=== PATIENT | male | born 1985 | race Caucasian/White ===

== ENCOUNTER 2018-05-16 14:40 | Emergency (ER) | payer MEDICAID ==
[~2018-05-16] VITALS: Ht 175.3 cm; Wt 88.5 kg
[2018-05-16 14:51] VITALS: BP 126/81
[2018-05-16] MEDS ORDERED: BUPROPION XL300 MG ORAL (14:52)
--- NOTE | 2018-05-16 15:03 | Emergency Room Report ---
History of Present Illness General Chief Complaint: Earache Source: Patient Present Illness HPI 33-year-old male presents to the emergency department complaining of 8 out of 10 in severity progressive pain to the right ear 2 weeks. Patient denies changes in his hearing or discharge from the ear. Patient does report that he uses Q-tips regularly. Patient denies trauma to the ear or eardrum. Patient reports he did similar to his head in water recently. Patient denies fevers, chills, nasal congestion, sore throat or other URI symptoms. Patient denies headache or imbalance. Allergies: Coded Allergies: AMOXICILLIN (Verified Allergy, Unknown, 05/16/18) Patient History Past Medical History: see triage record Past Surgical History: none Pertinent Family History: none Reviewed Nursing Documentation: PMH: Agreed; PSxH: Agreed Nursing Documentation-PMH Past Medical History: No History, Except For History Of Psychiatric Problem: No - bipolar Review of Systems All Other Systems: negative except mentioned in HPI Physical Exam Vital Signs Date Time Temp Pulse Resp B/P (MAP) Pulse Ox O2 Delivery O2 Flow Rate FiO2 05/16/18 14:51 98.8 81 18 126/81 98 Room Air Sp02 EP Interpretation: reviewed, normal General Appearance: no apparent distress, alert, GCS 15, non-toxic Head: normocephalic, atraumatic Eyes: bilateral eye normal inspection, bilateral eye PERRL ENT: hearing grossly normal, normal pharynx, normal voice, nasal congestion, other - Right ear canal is macerated, some external ear tenderness to palpation , creamy white d/c noted in the right ear canal. the TM is WNL. Neck: full range of motion Respiratory: lungs clear, normal breath sounds, speaking full sentences Cardiovascular #1: regular rate, rhythm, no edema Musculoskeletal: back normal, gait/station normal, normal range of motion, non- tender Neurologic: alert, oriented x3, responsive, motor strength/tone normal, sensory intact, normal gait, speech normal, grossly normal Psychiatric: judgement/insight normal Skin: normal color, no rash, warm/dry, well hydrated Lymphatic: no adenopathy Medical Decision Making PA Attestation Dr. Talbot is my supervising Physician whom patient management has been discussed with. Diagnostic Impression: Primary Impression: Otitis externa Qualified Codes: H60.501 - Unspecified acute noninfective otitis externa, right ear ER Course 33-year-old male presents to the emergency department complaining of 8 out of 10 in severity progressive pain to the right ear 2 weeks. Patient denies changes in his hearing or discharge from the ear. Patient does report that he uses Q-tips regularly. Patient denies trauma to the ear or eardrum. Patient reports he did similar to his head in water recently. Patient denies fevers, chills, nasal congestion, sore throat or other URI symptoms. Patient denies headache or imbalance. Ddx considered but are not limited to OM, OE, mastoiditis, TM perforation, FB, shingles just to name a few. Vital signs: are WNL, pt. is afebrile H&PE are most consistent with otitis Externa ORDERS: none required at this time, the diagnosis is clinical -OTOSCOPY: Right ear canal is macerated, some external ear tenderness to palpation, creamy white d/c noted in the right ear canal. the TM is WNL. ED INTERVENTIONS: None required at this time. DISCHARGE: At this time pt. is stable for d/c to home. With PO ABX. Will provide printed patient care instructions, and any necessary prescriptions. Care plan and follow up instructions have been discussed with the patient prior to discharge. Last Vital Signs Date Time Temp Pulse Resp B/P (MAP) Pulse Ox O2 Delivery O2 Flow Rate FiO2 05/16/18 14:51 98.8 81 18 126/81 98 Room Air Disposition: HOME, SELF-CARE Condition: Stable Scripts Acetaminophen* (TYLENOL EXTRA STRENGTH*) 500 Mg Tablet 500 MG ORAL Q6H, #20 TAB 0 Refills Prov: Paz Hernandez 05/16/18 Ciprofloxacin Hcl/Dexameth (CIPRODEX OTIC SUSPENSION) 7.5 Ml Drops.susp 4 DROP RIGHT EAR TWICE A DAY, #7.5 ML Prov: Paz Hernandez 05/16/18 Patient Instructions: Otitis Externa, [id number] Additional Instructions: Take medications as directed. Follow up with a Primary Care Provider in 3-5 days, even if your symptoms have resolved. --Please review list of primary care clinics, if you do not already have a primary care provider Return sooner to ED if new symptoms occur, or current symptoms become worse. - Please note that this Emergency Department Report was dictated using [employer] helper technology software, occasionally this can lead to erroneous entry secondary to interpretation by the dictation equipment. Paz Hernandez May 16, 2018 15:03
[2018-05-16] MEDS ORDERED: CIPRODEX OTIC7.5 M1 RIGHT EAR (15:05)
[2018-05-16] MEDS ORDERED: TYLENOL EXTRA500 MG ORAL (15:05)
[2018-05-16 15:15] VITALS: BP 126/81
== END 2018-05-16 15:15 | disposition home or self-care (01) ==
LOC: EMR 14:58
DX: H60.91 Unspecified otitis externa, right ear (principal); Z88.0 Allergy status to penicillin; F31.9 Bipolar disorder, unspecified
CPT/HCPCS: 99283

== ENCOUNTER 2018-06-29 11:49 | Emergency (ER) | payer MEDICAID ==
[~2018-06-29] VITALS: Ht 175.3 cm; Wt 83.9 kg
[~2018-06-29 11:49] MED LIST: BUPROPION XL300 MG ORAL; CIPRODEX OTIC7.5 M1 RIGHT EAR; TYLENOL EXTRA500 MG ORAL
[2018-06-29 12:26] VITALS: BP 125/79
--- NOTE | 2018-06-29 12:28 | NUR ---
ED Nurse Note:pt. c/o right earache no discharge
[2018-06-29] MEDS ORDERED: CORTISPORIN EAR10 ML RIGHT EAR (12:36)
--- NOTE | 2018-06-29 12:36 | Emergency Room Report ---
History of Present Illness General Chief Complaint: Earache Source: Patient Present Illness HPI 33-year-old male presents to the emergency department complaining of 7 out of 10 in severity right ear discomfort 2 weeks. Patient reports that he previously had infection in this ear was applying antibiotic drops with no relief. Patient also reports increased nasal congestion and muffled hearing out of the ear. Patient denies fevers, chills, ill contacts with similar symptoms or recent upper respiratory infections. Denies any additional aggravating or relieving factors. Allergies: Coded Allergies: AMOXICILLIN (Verified Allergy, Unknown, 05/16/18) Patient History Past Medical History: see triage record Past Surgical History: none Pertinent Family History: none Immunizations: UTD Reviewed Nursing Documentation: PMH: Agreed; PSxH: Agreed Nursing Documentation-PMH Past Medical History: No Stated History Review of Systems All Other Systems: negative except mentioned in HPI Physical Exam Vital Signs Date Time Temp Pulse Resp B/P (MAP) Pulse Ox O2 Delivery O2 Flow Rate FiO2 06/29/18 11:52 98.2 80 18 125/79 95 Room Air Sp02 EP Interpretation: reviewed, normal General Appearance: no apparent distress, alert, GCS 15, non-toxic Head: normocephalic, atraumatic Eyes: bilateral eye normal inspection, bilateral eye PERRL ENT: hearing grossly normal, normal pharynx, normal voice, uvula midline, nasal congestion, other - -OTOSCOPY: Right ear Canal is erythematous and macerated in appearance with thick white d/c noted, no TM involvement, no evidence of mastoidits or preauricular LAD on PE. Neck: full range of motion, no meningismus Respiratory: chest non-tender, lungs clear, normal breath sounds, speaking full sentences Cardiovascular #1: regular rate, rhythm Musculoskeletal: back normal, gait/station normal, normal range of motion, non- tender Neurologic: alert, oriented x3, responsive, motor strength/tone normal, sensory intact, speech normal, grossly normal Psychiatric: judgement/insight normal Skin: normal color, no rash, warm/dry, well hydrated Lymphatic: no adenopathy Medical Decision Making PA Attestation Dr. Sandoval is my supervising physician whom pt. management has been discussed with. Diagnostic Impression: Primary Impression: Otitis externa Qualified Codes: H60.501 - Unspecified acute noninfective otitis externa, right ear ER Course 33-year-old male presents to the emergency department complaining of 7 out of 10 in severity right ear discomfort 2 weeks. Patient reports that he previously had infection in this ear was applying antibiotic drops with no relief. Patient also reports increased nasal congestion and muffled hearing out of the ear. Patient denies fevers, chills, ill contacts with similar symptoms or recent upper respiratory infections. Denies any additional aggravating or relieving factors. Ddx considered but are not limited to OM, OE, mastoiditis, TM perforation, FB Vital signs: are WNL, pt. is afebrile H&PE are most consistent with otitis externa ORDERS: none required at this time, the diagnosis is clinical -OTOSCOPY: Right ear Canal is erythematous and macerated in appearance with thick white d/c noted, no TM involvement, no evidence of mastoidits or preauricular LAD on PE. ED INTERVENTIONS: None required at this time. DISCHARGE: At this time pt. is stable for d/c to home. With Otic ABX. Will provide printed patient care instructions, and any necessary prescriptions. Care plan and follow up instructions have been discussed with the patient prior to discharge. Last Vital Signs Date Time Temp Pulse Resp B/P (MAP) Pulse Ox O2 Delivery O2 Flow Rate FiO2 06/29/18 12:26 98.2 70 18 125/79 95 Room Air Disposition: HOME, SELF-CARE Condition: Stable Scripts Neomycin/Polymyxin B Sulf/Hc* (CORTISPORIN EAR SOLUTION*) 10 Ml Solution 4 DROP RIGHT EAR QID for 7 Days, #10 ML 0 Refills Prov: Paz Hernandez 06/29/18 Referrals: NOT CHOSEN IPA/MD,REFERRING (PCP) Patient Instructions: Otitis Externa, [id number] Additional Instructions: Take medications as directed. Follow up with a Primary Care Provider in 3-5 days, even if your symptoms have resolved. --Please review list of primary care clinics, if you do not already have a primary care provider Return sooner to ED if new symptoms occur, or current symptoms become worse. - Please note that this Emergency Department Report was dictated using [employer] wad operator adjuster technology software, occasionally this can lead to erroneous entry secondary to interpretation by the dictation equipment. Paz Hernandez Jun 29, 2018 12:35
[2018-06-29 12:45] VITALS: BP 125/79
--- NOTE | 2018-06-29 12:47 | NUR ---
ED Nurse Note: Patient is being discharged cleared by ER provider. discharge instruction with prescription given to the patient, patient verbalized understanding. patient a/o x4, ambulated out of Ed with steady gait, with all belongings. ID band removed.
== END 2018-06-29 12:47 | disposition home or self-care (01) ==
LOC: EMR 12:25
DX: H60.91 Unspecified otitis externa, right ear (principal); Z88.0 Allergy status to penicillin
CPT/HCPCS: 99282

== ENCOUNTER 2019-01-13 19:24 | Inpatient (IN) | payer MEDICAID ==
[~2019-01-13] VITALS: Ht 167.6 cm; Wt 75.3 kg
[~2019-01-13 19:24] MED LIST changes: +CORTISPORIN EAR10 ML RIGHT EAR
[2019-01-13 19:39] VITALS: BP 119/76
--- NOTE | 2019-01-13 19:43 | NUR ---
ED Nurse Note: Patient walked in to ER from home c/o azbdominal pain, N/V/D. Stated that was taking Ticicay 50 mg, and Truvada in order to prevent HIV. Per patient he had unprotected sex with woman who in high risk to have HIV. AAO x4, VSS at this time, skin is dry warm to touch.
[2019-01-13 20:19] LABS: ANION GAP 8 mmol/L (5-15); BLOOD UREA NITROGEN 14 mg/dL (7-18); CALCIUM 9.7 MG/DL (8.5-10.1); CARBON DIOXIDE 32 MMOL/L (21-32); CHLORIDE 97 MMOL/L (98-107); CREATININE 1.2 MG/DL (0.55-1.30); POTASSIUM 3.2 MMOL/L (3.5-5.1); SODIUM 137 MMOL/L (136-145)
[2019-01-13 20:28] LABS: BASOPHILS % (AUTO) 1.5 % (0.0-2.0); EOSINOPHILS % (AUTO) 2.9 % (0.0-3.0); HEMATOCRIT 45.1 % (42.0-52.0); HEMOGLOBIN 16.7 G/DL (14.2-18.0); LYMPHOCYTES % (AUTO) 22.2 % (20.0-45.0); MEAN CORPUSCULAR VOLUME 88 FL (80-99); MONOCYTES % (AUTO) 11.6 % (1.0-10.0); NEUTROPHILS % (AUTO) 61.9 % (45.0-75.0); PLATELET COUNT 197 K/UL (150-450); RED BLOOD COUNT 5.12 M/UL (4.70-6.10); RED CELL DISTRIBUTION WIDTH 10.6 % (11.6-14.8); WHITE BLOOD COUNT 7.4 K/UL (4.8-10.8)
[2019-01-13 20:29] LABS: ALANINE AMINOTRANSFERASE 29 U/L (12-78); ALBUMIN 4.3 G/DL (3.4-5.0); ALBUMIN/GLOBULIN RATIO 1.3 (1.0-2.7); ALKALINE PHOSPHATASE 76 U/L (46-116); ASPARTATE AMINO TRANSFERASE 34 U/L (15-37); BILIRUBIN,TOTAL 1.3 MG/DL (0.2-1.0)
[2019-01-13 20:32] LABS: BILIRUBIN,DIRECT 0.2 MG/DL (0.0-0.3)
--- NOTE | 2019-01-13 20:47 | Diagnostic Imaging Report ---
EXAM: XR Chest, 1 View CLINICAL HISTORY: SOB TECHNIQUE: Frontal view of the chest. COMPARISON: No relevant prior studies available. FINDINGS: Lungs: Unremarkable. No consolidation. Pleural space: Unremarkable. No pneumothorax. Heart: Unremarkable. No cardiomegaly. Mediastinum: Unremarkable. Bones/joints: Unremarkable. IMPRESSION: 1. No acute cardio pulmonary disease. 2. If there is continued concern, recommend PA and lateral chest radiographs.
[2019-01-13] MEDS ORDERED: Ketorolac 30mg Inj IV ONE (21:15)
[2019-01-13] MEDS ORDERED: Loperamide 2mg cap ORAL ONE (21:15)
[2019-01-13] MEDS ORDERED: Isovue-300 100ml vial INJ PRN (21:15)
[2019-01-13 21:35] LABS: APPEARANCE,URINE CLEAR; BILIRUBIN, URINE 1+ (NEGATIVE); COLOR,URINE BROWN; GLUCOSE, URINE (UA) NEGATIVE (NEGATIVE); KETONES,URINE 1+ (NEGATIVE); LEUKOCYTE ESTERASE ,URINE 1+ (NEGATIVE); NITRITE,URINE NEGATIVE (NEGATIVE); PH,URINE 6 (4.5-8.0); PROTEIN,URINE 2+ (NEGATIVE); UROBILINOGEN,URINE 4 MG/DL (0.0-1.0)
--- NOTE | 2019-01-13 21:46 | Emergency Room Report ---
History of Present Illness General Chief Complaint: Dyspnea/Respdistress Source: Patient (Rishi Kirby MD) Present Illness HPI 33-year-old male presents ED for evaluation. Complaining of back pain, diarrhea , weakness, shortness of breath for the last few days. Pain is dull, 7 out of 10, localized to lower back. States he has been having multiple episodes of watery loose stools for the last few days. States that he is currently taking PreP therapy Truvada and Tivicay. Has been taking this on and off for the last few months because his partner has uncertain STD history. Declines denies being HIV positive and has been tested multiple times in the past for this. Denies any recent travel or recent antibiotic use. Denies fevers or chills. Denies chest pain. No other aggravating relieving factors. Denies any other associated symptoms (Rishi Kirby MD) Allergies: Coded Allergies: AMOXICILLIN (Verified Allergy, Unknown, 05/16/18) Patient History Past Medical History: none Past Surgical History: none Pertinent Family History: none Social History: Denies: smoking, alcohol use, drug use Immunizations: UTD Reviewed Nursing Documentation: PMH: Agreed; PSxH: Agreed (Rishi Kirby MD) Nursing Documentation-PMH Hx Cardiac Problems: Yes Hx Neurological Problems: Yes - HIV (Rishi Kirby MD) Review of Systems All Other Systems: negative except mentioned in HPI (Rishi Kirby MD) Physical Exam Vital Signs Date Time Temp Pulse Resp B/P (MAP) Pulse Ox O2 Delivery O2 Flow Rate FiO2 01/13/19 19:27 Room Air 01/13/19 19:39 98.6 82 22 119/76 100 Sp02 EP Interpretation: reviewed, normal General Appearance: no apparent distress, alert, GCS 15, non-toxic Head: normocephalic, atraumatic Eyes: bilateral eye normal inspection, bilateral eye PERRL ENT: hearing grossly normal, normal pharynx, no angioedema, normal voice Neck: full range of motion, supple/symm/no masses Respiratory: chest non-tender, lungs clear, normal breath sounds, speaking full sentences Cardiovascular #1: regular rate, rhythm, no edema Cardiovascular #2: 2+ carotid (R), 2+ carotid (L), 2+ radial (R), 2+ radial (L) , 2+ dorsalis pedis (R), 2+ dorsalis pedis (L) Gastrointestinal: normal bowel sounds, soft, non-distended, no guarding, no rebound, tenderness Rectal: deferred Genitourinary: normal inspection, CVA tenderness (R), CVA tenderness (L) Musculoskeletal: back normal, gait/station normal, normal range of motion, non- tender Neurologic: alert, oriented x3, responsive, motor strength/tone normal, sensory intact, speech normal Psychiatric: judgement/insight normal, memory normal, mood/affect normal, no suicidal/homicidal ideation Reflexes: 3+ bicep (R), 3+ bicep (L), 3+ tricep (R), 3+ tricep (L), 3+ knee (R) , 3+ knee (L) Lymphatic: no adenopathy (Rishi Kirby MD) Medical Decision Making Diagnostic Impression: Primary Impression: Colitis Additional Impression: Hypokalemia Labs Test 01/13/19 19:30 01/13/19 20:55 White Blood Count 7.4 K/UL (4.8-10.8) Red Blood Count 5.12 M/UL (4.70-6.10) Hemoglobin 16.7 G/DL (14.2-18.0) Hematocrit 45.1 % (42.0-52.0) Mean Corpuscular Volume 88 FL (80-99) Mean Corpuscular Hemoglobin 32.7 PG (27.0-31.0) Mean Corpuscular Hemoglobin Concent 37.1 G/DL (32.0-36.0) Red Cell Distribution Width 10.6 % (11.6-14.8) Platelet Count 197 K/UL (150-450) Mean Platelet Volume 9.8 FL (6.5-10.1) Neutrophils (%) (Auto) 61.9 % (45.0-75.0) Lymphocytes (%) (Auto) 22.2 % (20.0-45.0) Monocytes (%) (Auto) 11.6 % (1.0-10.0) Eosinophils (%) (Auto) 2.9 % (0.0-3.0) Basophils (%) (Auto) 1.5 % (0.0-2.0) Sodium Level 137 MMOL/L (136-145) Potassium Level 3.2 MMOL/L (3.5-5.1) Chloride Level 97 MMOL/L (98-107) Carbon Dioxide Level 32 MMOL/L (21-32) Anion Gap 8 mmol/L (5-15) Blood Urea Nitrogen 14 mg/dL (7-18) Creatinine 1.2 MG/DL (0.55-1.30) Estimat Glomerular Filtration Rate > 60 mL/min (>60) Glucose Level 67 MG/DL (74-106) Calcium Level 9.7 MG/DL (8.5-10.1) Total Bilirubin 1.3 MG/DL (0.2-1.0) Direct Bilirubin 0.2 MG/DL (0.0-0.3) Aspartate Amino Transf (AST/SGOT) 34 U/L (15-37) Alanine Aminotransferase (ALT/SGPT) 29 U/L (12-78) Alkaline Phosphatase 76 U/L (46-116) Troponin I 0.000 ng/mL (0.000-0.056) Total Protein 7.6 G/DL (6.4-8.2) Albumin 4.3 G/DL (3.4-5.0) Globulin 3.3 g/dL Albumin/Globulin Ratio 1.3 (1.0-2.7) Lipase 140 U/L (73-393) Urine Color Brown Urine Appearance Clear Urine pH 6 (4.5-8.0) Urine Specific [place] 1.020 (1.005-1.035) Urine Protein 2+ (NEGATIVE) Urine Glucose (UA) Negative (NEGATIVE) Urine Ketones 1+ (NEGATIVE) Urine Blood Negative (NEGATIVE) Urine Nitrite Negative (NEGATIVE) Urine Bilirubin 1+ (NEGATIVE) Urine Ictotest Negative (NEGATIVE) Urine Urobilinogen 4 MG/DL (0.0-1.0) Urine Leukocyte Esterase 1+ (NEGATIVE) (Rishi Kirby MD) ER Course CT as below. Contact Dr. Mccormick for admission. (Clem Chapa MD) EKG Diagnostic Results Rate: normal Rhythm: NSR ST Segments: no acute changes ASA given to the pt in ED: No (Rishi Kirby MD) Rhythm Strip Diag. Results EP Interpretation: yes Rhythm: NSR, no PVC's, no ectopy (Rishi Kirby MD) Chest X-Ray Diagnostic Results Chest X-Ray Diagnostic Results : Chest X-Ray Ordered: Yes # of Views/Limited/Complete: 1 View Indication: Shortness of Breath EP Interpretation: Yes Interpretation: no consolidation, no effusion, no pneumothorax, no acute cardiopulmonary disease Impression: No acute disease Electronically Signed by: Electronically signed by Rishi Kirby MD (Rishi Kirby MD) CT/MRI/US Diagnostic Results CT/MRI/US Diagnostic Results : Imaging Test Ordered: abd/pelvis Impression 1. Normal appendix. 2. Diffuse liquid colonic contents with mild rectal wall thickening could represent an infectious or inflammatory colitis, correlate clinically. 3. Substantially dilated of uncertain etiology large volume of ingested contents, correlate clinically and consider NG tube decompression. (Clem Chapa MD) Last Vital Signs Date Time Temp Pulse Resp B/P (MAP) Pulse Ox O2 Delivery O2 Flow Rate FiO2 01/13/19 19:39 82 22 Room Air 01/13/19 19:39 98.6 119/76 100 Status: improved (Rishi Kirby MD) Last Vital Signs Date Time Temp Pulse Resp B/P (MAP) Pulse Ox O2 Delivery O2 Flow Rate FiO2 01/14/19 04:00 98.0 68 18 114/68 (83) 96 01/13/19 23:44 Room Air (Clem Chapa MD) Disposition: ADMITTED INPATIENT Condition: Serious Referrals: Hansa SWIFT,REFERRING (PCP) Rishi Kirby MD Jan 13, 2019 21:46 Clem Chapa MD Jan 13, 2019 22:33
--- NOTE | 2019-01-13 22:26 | Diagnostic Imaging Report ---
EXAM: CT Abdomen and Pelvis With Intravenous Contrast CLINICAL HISTORY: FLANK TECHNIQUE: Axial computed tomography images of the abdomen and pelvis with intravenous contrast. CTDI is 14 mGy and DLP is 765 mGy-cm. One or more of the following dose reduction techniques were used: automated exposure control, adjustment of the mA and/or kV according to patient size, use of iterative reconstruction technique. Coronal and sagittal reformatted images were created and reviewed. COMPARISON: No relevant prior studies available. FINDINGS: Lung bases: Unremarkable. No mass. No consolidation. ABDOMEN: Liver: Unremarkable. No mass. Gallbladder and bile ducts: Unremarkable. No calcified stones. No ductal dilation. Pancreas: Unremarkable. No mass. No ductal dilation. Spleen: Unremarkable. No splenomegaly. Adrenals: Unremarkable. No mass. Kidneys and ureters: Unremarkable. No solid mass. No hydronephrosis. Stomach and bowel: Diffuse liquid colonic contents with mild rectal wall thickening could represent an infectious or inflammatory colitis, correlate clinically. Substantially dilated of uncertain etiology large volume of ingested contents, correlate clinically and consider NG tube decompression. PELVIS: Appendix: No findings to suggest acute appendicitis. Bladder: Unremarkable. No mass. Reproductive: Unremarkable as visualized. ABDOMEN and PELVIS: Intraperitoneal space: Unremarkable. No free air. No significant fluid collection. Bones/joints: No acute fracture. No dislocation. Soft tissues: Unremarkable. Vasculature: Unremarkable. No abdominal aortic aneurysm. Lymph nodes: Scattered mildly prominent mesenteric lymph nodes could be reactive. IMPRESSION: 1. Normal appendix. 2. Diffuse liquid colonic contents with mild rectal wall thickening could represent an infectious or inflammatory colitis, correlate clinically. 3. Substantially dilated of uncertain etiology large volume of ingested contents, correlate clinically and consider NG tube decompression.
[2019-01-13 22:53] VITALS: BP 125/76
--- NOTE | 2019-01-13 22:53 | NUR ---
ED Nurse Note: Patient was admited to the MS due to severe diarrhea, colitis. Patient was transfered to the unit via gurney, with all belongings. AAO x4, VSS at this time, skin is dry warm to touch.
--- NOTE | 2019-01-13 23:00 | NUR ---
NURSE NOTES: Admitted patient awake,alert,verbal,ambulatory with essentially normal vital signs.
[2019-01-13] MEDS ORDERED: Zolpidem 5mg tab ORAL PRN (23:30)
[2019-01-13] MEDS ORDERED: Loperamide 2mg cap ORAL PRN (23:30)
[2019-01-13] MEDS ORDERED: Morphine Sulfate 4mg/ml Inj (IV USE ONLY) IVP PRN ×2 (23:30)
[2019-01-14] VITALS: BP 113/72
[2019-01-14] MEDS: metroNIDAZOLE 500mg tab ORAL SCH ×3 (00:18→14:30)
[2019-01-14] MEDS: D5 1/2NS 1,000 ML IV SCH ×2 (00:19→12:15)
--- NOTE | 2019-01-14 00:47 | NUR ---
NURSE NOTES: Pharmacy adoption coordinator Patricia called regarding patient's allergy to amoxicillin,and hold in the meantime the Zosyn until discussed/informed the attending MD early in the morning.
[2019-01-14] MEDS ORDERED: Zoysn 3.37gm in NS 100ML IVPB SCH ×5 (01:00→01:30)
[2019-01-14 04:00] VITALS: BP 114/68
[2019-01-14 06:27] LABS: BASOPHILS % (AUTO) 0.9 % (0.0-2.0); EOSINOPHILS % (AUTO) 5.8 % (0.0-3.0); HEMATOCRIT 39.7 % (42.0-52.0); HEMOGLOBIN 14.1 G/DL (14.2-18.0); MEAN CORPUSCULAR VOLUME 93 FL (80-99); MONOCYTES % (AUTO) 14.7 % (1.0-10.0); NEUTROPHILS % (AUTO) 55.6 % (45.0-75.0); PLATELET COUNT 144 K/UL (150-450); RED BLOOD COUNT 4.29 M/UL (4.70-6.10); RED CELL DISTRIBUTION WIDTH 11.1 % (11.6-14.8); WHITE BLOOD COUNT 7.2 K/UL (4.8-10.8)
[2019-01-14 06:49] LABS: ALANINE AMINOTRANSFERASE 21 U/L (12-78); ALBUMIN 3.1 G/DL (3.4-5.0); ALBUMIN/GLOBULIN RATIO 1.2 (1.0-2.7); ALKALINE PHOSPHATASE 51 U/L (46-116); ANION GAP 7 mmol/L (5-15); ASPARTATE AMINO TRANSFERASE 23 U/L (15-37); BILIRUBIN,TOTAL 0.8 MG/DL (0.2-1.0); BLOOD UREA NITROGEN 13 mg/dL (7-18); CALCIUM 8.5 MG/DL (8.5-10.1); CARBON DIOXIDE 27 MMOL/L (21-32); CHLORIDE 105 MMOL/L (98-107); POTASSIUM 3.3 MMOL/L (3.5-5.1); SODIUM 139 MMOL/L (136-145)
--- NOTE | 2019-01-14 07:26 | NUR ---
HAND-OFF: Report given to Jacqueline Campbell RN.
--- NOTE | 2019-01-14 07:30 | NUR ---
NURSE NOTES: Patient is in bed asleep. Stable. No signs of distress noted at this time. Breathing is even and unlabored. Patient in bed in locked and lowest position with call light within reach. Will continue to monitor.
[2019-01-14] MEDS ORDERED: cefTRIAXone 1 GM in D5W 55 ML IVPB SCH (09:00)
[2019-01-14 12:00] VITALS: BP 107/70
--- NOTE | 2019-01-14 13:36 | History & Physical ---
History and Physical History & Physicial HP dictated Star Mccormick MD Jan 14, 2019 13:36
[2019-01-14] MEDS ORDERED: D5 1/2NS 1000ml IV ONE (15:11)
[2019-01-14] MEDS ORDERED: Tubing IV Secondary IV ONE (15:11)
[2019-01-14 16:00] VITALS: BP 107/72
--- NOTE | 2019-01-14 17:36 | NUR ---
NURSE NOTES: Patient discharged home as ordered. Stable. Denies pain or SOB. Patient AOx4 and able to drive himself home. Thorough discharge instructions given to patient, patient verbalized understanding. Patient has contact information for Dr. Ambika Mccormick. Patient has all belongings. Skin is clean, dry, and intact. no IV access. Patient assisted outside by RN without incident.
--- NOTE | 2019-01-14 18:15 | Consultation ---
DATE OF CONSULTATION: 01/14/2019 INFECTIOUS DISEASE CONSULT CONSULTING PHYSICIAN: Abdiel Mccormick M.D. REASON FOR CONSULT: Gastroenteritis. HISTORY OF PRESENT ILLNESS: This is a 33-year-old white male admitted yesterday from home complaining of low back pain 7/10, watery diarrhea for few days. Had 2 episodes of vomiting. Got some antibiotic in the ER and now feels better. PAST MEDICAL HISTORY: History of amphetamine abuse. ALLERGIES: Allergic to amoxicillin. MEDICATIONS: Ceftriaxone, Flagyl, Ambien, Zofran, Imodium, morphine sulfate. SOCIAL HISTORY: He is single, lives in a sober home. He has occasional smoking. Getting exposure prophylaxis for HIV. No sick contacts. Had a recent travel to [place]. REVIEW OF SYSTEMS: Today feeling better. Has no fever. No chills. No coughing. No shortness of breath. Has some back pain, but less than before. Diarrhea is resolved. No problem passing urine. PHYSICAL EXAMINATION: VITAL SIGNS: Temperature 98.3, pulse 71, blood pressure 107/70. GENERAL APPEARANCE: No acute distress, well developed. HEAD AND NECK: No oral lesion. HEART: Normal rate. LUNGS: Clear. ABDOMEN: Soft, nontender. EXTREMITIES: Has no edema. NEUROLOGIC: Awake, alert, oriented x3. Normal gait. LABORATORY DATA: WBC 7.2, hemoglobin 14.1, hematocrit 39.7, platelets 144. Sodium 139, potassium 3.3, chloride 105, bicarbonate 27, BUN 13, creatinine 1, glucose is 109. Albumin is 3.1. CT scan of the abdomen and pelvis showed infectious colitis, distention of the stomach. IMPRESSION: Infectious gastroenteritis versus food poisoning. The patient's symptoms are resolving. No nausea, vomiting, and no diarrhea today. Has last night hypokalemia. RECOMMENDATION: The patient can be discharged to home without on antibiotic. In case of developing fever and/or blood in stool, needs to come back to the hospital. At the end of my exam, I thank Dr. Star Mccormick for involving me in the care of this patient. Abdiel Mccomrick M.D. DR: KENNY JOB#: [id number] CC: AUGUSTINE
--- NOTE | 2019-01-14 18:15 | History and Physical Report ---
DATE OF ADMISSION: 01/13/2019 CHIEF COMPLAINT: Vomiting, abdominal pain, and diarrhea. HISTORY OF PRESENT ILLNESS: This is a 33-year-old male, who started having abdominal pain and vomiting about two days ago. This continued until yesterday when he came to the emergency room. He had also some diarrhea. He was admitted and diagnosed with acute gastroenteritis. He is feeling better now. PAST MEDICAL HISTORY: The patient denies history of HIV or he takes prophylactic medications. He said that he has testicular cancer status post orchiectomy. SOCIAL HISTORY: No history of alcohol abuse. He smokes a pack every three days. He is homosexual. ALLERGIES: Amoxicillin. REVIEW OF SYSTEMS: Noncontributory except above. PHYSICAL EXAMINATION: GENERAL: The patient is a 33-year-old male, in no acute distress. VITAL SIGNS: Blood pressure 107/70, pulse 71, respirations 18, and temperature 98.3. HEENT: Calvin conjunctivae. Anicteric sclerae. NECK: Supple. LUNGS: Clear to auscultation. HEART: S1, S2 without murmurs or rubs. ABDOMEN: Soft, nontender. No masses. EXTREMITIES: No cyanosis or edema. LABORATORY FINDINGS: CBC shows a WBC of 7200, hematocrit 39.7, hemoglobin 14.1, and platelets 144,000. Chemistry panel shows a serum sodium 139, potassium 3.3, chloride 105, CO2 27, BUN 13, and creatinine 1.0. Blood sugar is 109. UA shows 2+ protein. ASSESSMENT: This is a 33-year-old male, who was admitted with abdominal pain, nausea, vomiting, and diarrhea consistent with acute gastroenteritis, probably viral etiology. PLAN: The patient was started on full liquid diet, he tolerated well. He was also hydrated with IV fluids. He has hypokalemia from diarrhea. The patient's diet will be advanced to regular diet. Potassium will be repleted. If he is asymptomatic, he will be discharged home today. Star Mccormick M.D. DR: FREDERICK JOB#: [id number] CC:
--- NOTE | 2019-01-16 08:07 | Discharge Summary ---
Discharge Summary Discharge Summary _ DATE OF ADMISSION: 01/13/2019 DATE OF DISCHARGE: 01/14/2019 DISCHARGED BY : Dr Laisha Mccormick REASON FOR ADMISSION: 33 years old male with history of testicular cancer, status post orchiectomy, presented to emergency department complaining of back pain, diarrhea, weakness, shortness of breath for the last few days. Pain reported 7 out of 10 , localized in lower back. Patient reported multiple episodes of watery loose stool for the last few days. Patient was currently taking PreP therapy with Truvada and Tivicay. Patient was taking this on and off for the last few months , because his partner had uncertain STD history. Patient declined being HIV positive and was tested multiple times in the past for it. He denied recent travel or recent antibiotic use. He denied fever and chills. No chest pain. Upon evaluation vital signs were stable. Laboratory work-up revealed no leukocytosis, stable hemoglobin and hematocrit. Potassium 3.2. Stable other electrolytes. BUN 14, creatinine 1.2. Glucose 67. Stable LFT. Total bilirubin 1.3, direct bilirubin 0.2. Lipase 140. Troponin negative. EKG revealed normal sinus rhythm, no acute ischemic changes. Albumin 4.3 Urinalysis revealed +2 protein, +1 ketones, +1 bilirubin, no evidence of UTI. Chest x-ray revealed no acute cardiopulmonary pathology. CT of the abdomen and pelvis demonstrated normal appendix. Diffuse liquid colonic contents with mild rectal wall thickening could represent an infectious or inflammatory colitis, correlate clinically. In emergency department patient was medicated for pain, received antiemetic, antidiarrheal and Pepcid. Potassium was replaced. Patient subsequently was admitted for further management. CONSULTANTS: ID specialist Dr. Santo HOSPITAL COURSE: Patient admitted to medical surgical floor. Patient was hydrated with intravenous fluids. Patient started on the full liquid diet. Renal parameters and electrolytes were closely monitored, potassium was further replaced . Diet was slowly advanced as tolerated . Symptomatic care provided. Pain management was addressed. Antiemetic and antidiarrheal provided. ID specialist seen and evaluated patient. Per infectious disease specialist, patient had gastroenteritis versus food poisoning. Symptoms were gradually resolving. Nausea , vomiting, and diarrhea subsided. Per ID specialist patient can be discharged home. No need for antibiotics. Oral hydration was encouraged. Patient subsequently was discharged home. Due to rapid and unexpected improvement in patient condition, patient was discharged in 1 day. FINAL DIAGNOSES: Acute gastroenteritis, likely viral etiology Possible food poisoning Abdominal pain with nausea, vomiting , and diarrhea ( related to above) - subsided DISCHARGE MEDICATIONS: See Medication Reconciliation list. DISCHARGE INSTRUCTIONS: Patient was discharged home . Follow up with primary care provider in one week. I have been assigned to dictate discharge summary for this account. I was not involved in the patient's management. Cira Howell NP Jan 16, 2019 08:07
--- NOTE | 2019-01-16 11:10 | Cardiology Report ---
APPROVED REPORT EKG Measurement Heart [id number] Normal sinus rhythm Normal ECG
--- NOTE | 2019-01-16 11:35 | NUR ---
*-* INSURANCE *-* ALL CLINICALS HAVE BEEN FAXED TO: [facility] F: [phone]
== END 2019-01-14 16:30 | disposition home or self-care (01) | DRG 249 ==
LOC: EMR 20:00 → 3E 21:35 → EDBEDREQ 22:33 → 3E 22:52
DX: A08.4 Viral intestinal infection, unspecified (principal); T62.91XA Toxic effect of unspecified noxious substance eaten as food, accidental (unintentional), initial encounter; F15.11 Other stimulant abuse, in remission; Z88.1 Allergy status to other antibiotic agents; Z85.47 Personal history of malignant neoplasm of testis; F17.200 Nicotine dependence, unspecified, uncomplicated
CPT/HCPCS: 36415; 71045; 74177; 80053; 81003; 82248; 83690; 84484; 85025; 93005; 96361; 96374; 96375; 99285; J2405; J8499

== ENCOUNTER 2019-10-17 14:56 | Emergency (ER) | payer MEDICAID ==
[~2019-10-17] VITALS: Ht 175.3 cm; Wt 79.4 kg
[2019-10-17 15:13] VITALS: BP 132/91
--- NOTE | 2019-10-17 15:39 | Emergency Room Report ---
History of Present Illness General Chief Complaint: General Complaint Source: Patient Present Illness HPI 34-year-old male with no known significant past medical history here complaining of being exposed to possible HIV. Patient reports that he had intercourse, unprotected with a partner with confirmed HIV status who is taking his medication. Patient reports that he used to take prep in the past however has not taken in a while. Denies any symptoms at this time. Left sexual encounter was 2 days ago. Patient agrees to be tested for HIV as well as have liver function test that to be started on prophylactic medication. Denies chest pain, shortness of breath, headache and dizziness. Allergies: Coded Allergies: AMOXICILLIN (Verified Allergy, Unknown, 05/16/18) COVID-19 Screening Contact w/high risk pt: No Recent Travel to affected area: No Experienced COVID-19 symptoms?: No COVID-19 Testing performed SOLAR TECH: No Patient History Past Medical History: see triage record Past Surgical History: none Pertinent Family History: none Immunizations: UTD Reviewed Nursing Documentation: PMH: Agreed; PSxH: Agreed Nursing Documentation-PMH Past Medical History: No Stated History Hx Cardiac Problems: No Hx Neurological Problems: Yes Review of Systems All Other Systems: negative except mentioned in HPI Physical Exam Vital Signs Date Time Temp Pulse Resp B/P (MAP) Pulse Ox O2 Delivery O2 Flow Rate FiO2 10/16/20 15:02 98.1 89 20 132/91 (105) 97 Room Air Sp02 EP Interpretation: reviewed, normal General Appearance: no apparent distress, alert, GCS 15, non-toxic Head: normocephalic, atraumatic Eyes: bilateral eye normal inspection, bilateral eye PERRL ENT: hearing grossly normal, normal pharynx, no angioedema, normal voice Neck: full range of motion, supple/symm/no masses Respiratory: chest non-tender, lungs clear, normal breath sounds, speaking full sentences Cardiovascular #1: regular rate, rhythm, no edema Gastrointestinal: normal bowel sounds, non tender, soft, non-distended, no guarding, no rebound Genitourinary: normal inspection, no CVA tenderness Musculoskeletal: back normal Neurologic: alert, motor strength/tone normal, oriented x3, sensory intact, responsive, speech normal Psychiatric: judgement/insight normal, memory normal, mood/affect normal, no suicidal/homicidal ideation Skin: no rash Lymphatic: normal inspection Medical Decision Making PA Attestation All my diagnosis and treatment plans were reviewed ad discussed with my supervising physician Dr. Kirby Diagnostic Impression: Primary Impression: Exposure to HIV ER Course 34-year-old male with no known significant past medical history here complaining of being exposed to possible HIV. Patient reports that he had intercourse, unprotected with a partner with confirmed HIV status who is taking his medication. Patient reports that he used to take prep in the past however has not taken in a while. Denies any symptoms at this time. Left sexual encounter was 2 days ago. Patient agrees to be tested for HIV as well as have liver function test that to be started on prophylactic medication. Denies chest pain, shortness of breath, headache and dizziness. Ddx considered but are not limited to: chlamydia, Gonorrhea, syphilis, HIV, herpes 1 or 2 Vital signs: are WNL, pt. is afebrile H&PE are most consistent with : HIV exposure ORDERS: HIV testing, LFTs, Tylenol, Truvada, raltegravir ED INTERVENTIONS: None required at this time. DISCHARGE: At this time pt. is stable for d/c to home. Will provide printed patient care instructions, and any necessary prescriptions. Care plan and follow up instructions have been discussed with the patient prior to discharge. Patient to follow primary doctor, take medication as directed, worsening symptoms return to emergency room Last Vital Signs Date Time Temp Pulse Resp B/P (MAP) Pulse Ox O2 Delivery O2 Flow Rate FiO2 10/17/19 15:13 89 20 Room Air 10/17/19 15:13 98.1 132/91 97 Disposition: HOME, SELF-CARE Condition: Stable Scripts Raltegravir (Isentress) 400 Mg Tablet 400 MG ORAL EVERY 12 HOURS for 30 Days, #60 TAB Prov: Christy Mccarthy 10/17/19 Emtricitabine/Tenofovir 200-300MG* (TRUVADA 200-300MG*) 1 Each Tablet 1 TAB ORAL DAILY for 30 Days, #30 TAB Prov: Christy Mccarthy 10/17/19 Additional Instructions: Take medication as directed, follow-up primary doctor, if worsening symptoms return to emergency room Christy Mccarthy October 17, 2019 15:39
[2019-10-17] MEDS ORDERED: TRUVADA 200 MG1 EAC1 ORAL (15:46)
[2019-10-17] MEDS ORDERED: ISENTRESS400 MG ORAL (15:48)
[2019-10-17 16:16] VITALS: BP 132/91
[2019-10-17 16:34] LABS: BASOPHILS % (AUTO) 1.1 % (0.0-2.0); EOSINOPHILS % (AUTO) 3.3 % (0.0-3.0); HEMATOCRIT 46.7 % (42.0-52.0); HEMOGLOBIN 15.6 G/DL (14.2-18.0); LYMPHOCYTES % (AUTO) 30.6 % (20.0-45.0); MEAN CORPUSCULAR VOLUME 95 FL (80-99); MONOCYTES % (AUTO) 10.6 % (1.0-10.0); NEUTROPHILS % (AUTO) 54.4 % (45.0-75.0); PLATELET COUNT 213 K/UL (150-450); RED BLOOD COUNT 4.91 M/UL (4.70-6.10); RED CELL DISTRIBUTION WIDTH 12.1 % (11.6-14.8); WHITE BLOOD COUNT 9.2 K/UL (4.8-10.8)
[2019-10-17 16:54] LABS: ANION GAP 7 mmol/L (5-15); BLOOD UREA NITROGEN 13 mg/dL (7-18); CALCIUM 9.3 MG/DL (8.5-10.1); CARBON DIOXIDE 30 MMOL/L (21-32); CHLORIDE 105 MMOL/L (98-107); CREATININE 0.9 MG/DL (0.55-1.30); POTASSIUM 4.4 MMOL/L (3.5-5.1); SODIUM 142 MMOL/L (136-145)
[2019-10-17 16:59] LABS: ALANINE AMINOTRANSFERASE 30 U/L (12-78); ALKALINE PHOSPHATASE 80 U/L (46-116); AMYLASE 40 U/L (25-115); ASPARTATE AMINO TRANSFERASE 15 U/L (15-37); BILIRUBIN,DIRECT < 0.1 MG/DL (0.0-0.3); BILIRUBIN,TOTAL 0.3 MG/DL (0.2-1.0); PHOSPHORUS 4.1 MG/DL (2.5-4.9)
== END 2019-10-17 16:16 | disposition home or self-care (01) ==
LOC: EMR 15:44
DX: Z20.6 Contact with and (suspected) exposure to human immunodeficiency virus [HIV] (principal); Z88.0 Allergy status to penicillin
CPT/HCPCS: 36415; 80069; 80076; 82150; 85025; 86703; 87536; Z7502; 99283

== ENCOUNTER 2019-10-29 05:26 | Emergency (ER) | payer MEDICAID ==
[~2019-10-29] VITALS: Ht 175.3 cm; Wt 72.6 kg
[~2019-10-29 05:26] MED LIST changes: +ISENTRESS400 MG ORAL; +TRUVADA 200 MG1 EAC1 ORAL
[2019-10-29] MEDS ORDERED: Ketorolac 30mg Inj IV ONE (06:00)
--- NOTE | 2019-10-29 06:00 | NUR ---
Bubba cisneros in EDM - 10/29/19 at 0617 by MURIEL ED Nurse Note: Recieved pt from home, here with c/o abdominal pain with nausea and emesis x 2 days, pt
--- NOTE | 2019-10-29 06:00 | NUR ---
ED Nurse Note: Recieved pt from home, here with c/o abdominal pain with nausea and emesis x 2 days, pt denies fevers, diarhea or any other discomforts or complaints, pt gave urine, assisted to gowning and placed on cardiac monitoring, IV line and labs done also, pt medicated for pain, will continue to monitor for effectiveness or any acute changes.
--- NOTE | 2019-10-29 06:02 | Emergency Room Report ---
History of Present Illness General Chief Complaint: Abdominal Pain Source: Patient Present Illness HPI Disclaimer: Please note that this report is being documented using DRAGON technology. This can lead to erroneous entry secondary to incorrect interpretation by the dictating instrument. HPI: 34-year-old male presents for evaluation of abdominal pain. Reports 2 days of epigastric pain and loose stools. Denies fever or chills. Difficulty with eating. Forward pain is in the epigastrium and nonradiating, constant. Cannot recall specific inciting event. States he has had similar pain in the past was admitted for colitis and hypokalemia. Recently tested for HIV on resulting negative. He is on prep. PMH: hypokalemia, testicular cancer PSH: Orchiectomy Allergies: Amoxicillin Social Hx: Reviewed Allergies: Coded Allergies: AMOXICILLIN (Verified Allergy, Unknown, 05/16/18) COVID-19 Screening Contact w/high risk pt: No Recent Travel to affected area: No Experienced COVID-19 symptoms?: No COVID-19 Testing performed WALLPAPERER HELPER: No Nursing Documentation-PMH Hx Cardiac Problems: No Hx Neurological Problems: Yes Review of Systems All Other Systems: negative except mentioned in HPI Physical Exam Vital Signs Date Time Temp Pulse Resp B/P (MAP) Pulse Ox O2 Delivery O2 Flow Rate FiO2 10/29/19 05:31 97.5 63 16 127/92 (104) 98 Room Air General: Patient sleeping comfortably on my arrival and easily awakens. HEENT: NC/AT. EOMI. Cardiovascular: RRR. S1 and S2 normal. No murmur appreciated Resp: Normal work of breathing. No cough, wheezing or crackles appreciated Abdomen: Abdomen is soft, nondistended. Tender palpation in the epigastrium but also the upper quadrants and periumbilical region. Less tenderness in the lower quadrants. Skin: Intact. No abrasions, laceration or rash over the exposed skin MSK: Normal tone and bulk. Moving all extremities. No obvious deformity. Neuro: Awake and alert. Mentating appropriately. Medical Decision Making Diagnostic Impression: Primary Impression: Gastroenteritis ER Course 34-year-old male presents for evaluation of 2 days worsening abdominal pain and loose stools. Differential includes but not limited to gastritis, gastroenteritis, pancreatitis, cholecystitis, colitis, diverticulitis, obstruction to name a few. Patient was placed on monitor, IV line established and was given IV fluids, antiemetics and analgesics. He was sleeping comfortably on my arrival in the room and is not in any obvious distress. Vital signs are within normal limits. Broad labs were obtained which have returned within normal limits. No electrolyte abnormalities, renal function WNL , lipase WNL. Urinalysis is positive for amphetamines. Previous CT showed colitis but when patient was admitted it was felt it was likely food poisoning. Patient received IV fluid and we allowed to sleep until ready to be discharged. Today may be a combination of substance abuse and possible food poisoning. Will discharge with antidiarrheals, probiotic and antacids. He is stable for outpatient follow-up and was instructed to return to the emergency department new or worsening symptoms. Laboratory Tests Test 10/29/19 06:06 White Blood Count 9.6 K/UL (4.8-10.8) Red Blood Count 4.78 M/UL (4.70-6.10) Hemoglobin 15.6 G/DL (14.2-18.0) Hematocrit 41.3 % (42.0-52.0) L Mean Corpuscular Volume 86 FL (80-99) Mean Corpuscular Hemoglobin 32.6 PG (27.0-31.0) H Mean Corpuscular Hemoglobin Concent 37.7 G/DL (32.0-36.0) H Red Cell Distribution Width 10.5 % (11.6-14.8) L Platelet Count 194 K/UL (150-450) Mean Platelet Volume 9.8 FL (6.5-10.1) Neutrophils (%) (Auto) 50.3 % (45.0-75.0) Lymphocytes (%) (Auto) 31.9 % (20.0-45.0) Monocytes (%) (Auto) 12.1 % (1.0-10.0) H Eosinophils (%) (Auto) 4.9 % (0.0-3.0) H Basophils (%) (Auto) 0.9 % (0.0-2.0) Urine Color Pale yellow Urine Appearance Clear Urine pH 6 (4.5-8.0) Urine Specific [place] 1.025 (1.005-1.035) Urine Protein Negative (NEGATIVE) Urine Glucose (UA) Negative (NEGATIVE) Urine Ketones Negative (NEGATIVE) Urine Blood Negative (NEGATIVE) Urine Nitrite Negative (NEGATIVE) Urine Bilirubin Negative (NEGATIVE) Urine Urobilinogen Normal MG/DL (0.0-1.0) Urine Leukocyte Esterase Negative (NEGATIVE) Sodium Level 144 MMOL/L (136-145) Potassium Level 4.3 MMOL/L (3.5-5.1) Chloride Level 107 MMOL/L (98-107) Carbon Dioxide Level 31 MMOL/L (21-32) Anion Gap 6 mmol/L (5-15) Blood Urea Nitrogen 22 mg/dL (7-18) H Creatinine 1.1 MG/DL (0.55-1.30) Estimated Glomerular Filtration Rate > 60 mL/min (>60) Glucose Level 107 MG/DL (74-106) H Calcium Level 8.7 MG/DL (8.5-10.1) Total Bilirubin 0.4 MG/DL (0.2-1.0) Aspartate Amino Transferase (AST) 24 U/L (15-37) Alanine Aminotransferase (ALT) 34 U/L (12-78) Alkaline Phosphatase 62 U/L (46-116) Total Protein 6.8 G/DL (6.4-8.2) Albumin 3.8 G/DL (3.4-5.0) Globulin 3.0 g/dL Albumin/Globulin Ratio 1.3 (1.0-2.7) Lipase 146 U/L (73-393) Urine Opiates Screen Negative (NEGATIVE) Urine Barbiturates Screen Negative (NEGATIVE) Phencyclidine (PCP) Screen Negative (NEGATIVE) Urine Amphetamines Screen Positive (NEGATIVE) H Urine Benzodiazepines Screen Negative (NEGATIVE) Urine Cocaine Screen Negative (NEGATIVE) Urine Marijuana (THC) Screen Positive (NEGATIVE) H Serum Alcohol < 3 mg/dL Last Vital Signs Date Time Temp Pulse Resp B/P (MAP) Pulse Ox O2 Delivery O2 Flow Rate FiO2 10/29/19 05:31 97.5 63 16 127/92 (104) 98 Room Air Disposition: HOME, SELF-CARE Condition: Stable Scripts Lactobac No.30/Bifidobact No.4 (Ultimate Evette Probiotic Dr Rosas) 1 Each Capsule. 1 EACH PO DAILY for 10 Days, #10 CAP Prov: Anthony Camilo MD 10/29/19 Famotidine* (Pepcid 20mg tablet*) 20 Mg Tablet 20 MG ORAL DAILY, #30 TAB 0 Refills Prov: Anthony Camilo MD 10/29/19 Ondansetron Odt* (ZOFRAN ODT*) 4 Mg Tab.rapdis 4 MG BC EVERY 6 HOURS PRN for Nausea & Vomiting, #10 TAB 0 Refills Prov: Anthony Camilo MD 10/29/19 Loperamide HCl (Loperamide) 2 Mg Capsule 2 MG ORAL Q4H, #20 CAP 0 Refills Prov: Anthony Camilo MD 10/29/19 Referrals: [facility]ERR[facility] (PCP) Anthony Camilo MD Oct 29, 2019 06:02
[2019-10-29 06:10] VITALS: BP 129/90
[2019-10-29 06:13] LABS: APPEARANCE,URINE CLEAR; BILIRUBIN, URINE NEGATIVE (NEGATIVE); COLOR,URINE PALE YELLOW; GLUCOSE, URINE (UA) NEGATIVE (NEGATIVE); KETONES,URINE NEGATIVE (NEGATIVE); LEUKOCYTE ESTERASE ,URINE NEGATIVE (NEGATIVE); NITRITE,URINE NEGATIVE (NEGATIVE); PH,URINE 6 (4.5-8.0); PROTEIN,URINE NEGATIVE (NEGATIVE); UROBILINOGEN,URINE NORMAL MG/DL (0.0-1.0)
[2019-10-29 06:14] LABS: BASOPHILS % (AUTO) 0.9 % (0.0-2.0); EOSINOPHILS % (AUTO) 4.9 % (0.0-3.0); HEMATOCRIT 41.3 % (42.0-52.0); HEMOGLOBIN 15.6 G/DL (14.2-18.0); LYMPHOCYTES % (AUTO) 31.9 % (20.0-45.0); MEAN CORPUSCULAR VOLUME 86 FL (80-99); MONOCYTES % (AUTO) 12.1 % (1.0-10.0); NEUTROPHILS % (AUTO) 50.3 % (45.0-75.0); PLATELET COUNT 194 K/UL (150-450); RED BLOOD COUNT 4.78 M/UL (4.70-6.10); RED CELL DISTRIBUTION WIDTH 10.5 % (11.6-14.8); WHITE BLOOD COUNT 9.6 K/UL (4.8-10.8)
[2019-10-29 06:22] LABS: ANION GAP 6 mmol/L (5-15); BLOOD UREA NITROGEN 22 mg/dL (7-18); CALCIUM 8.7 MG/DL (8.5-10.1); CARBON DIOXIDE 31 MMOL/L (21-32); CHLORIDE 107 MMOL/L (98-107); CREATININE 1.1 MG/DL (0.55-1.30); POTASSIUM 4.3 MMOL/L (3.5-5.1); SODIUM 144 MMOL/L (136-145)
[2019-10-29 06:27] LABS: ALANINE AMINOTRANSFERASE 34 U/L (12-78); ALBUMIN 3.8 G/DL (3.4-5.0); ALBUMIN/GLOBULIN RATIO 1.3 (1.0-2.7); ALKALINE PHOSPHATASE 62 U/L (46-116); ASPARTATE AMINO TRANSFERASE 24 U/L (15-37); BILIRUBIN,TOTAL 0.4 MG/DL (0.2-1.0)
[2019-10-29] MEDS ORDERED: ONDANSETRON ODT4 MG BC ×2 (06:55)
[2019-10-29] MEDS ORDERED: IMODIUM2 MG ORAL ×2 (06:55)
[2019-10-29] MEDS ORDERED: FAMOTIDINE20 MG ORAL ×2 (06:55)
[2019-10-29] MEDS ORDERED: ULTIMATE FLORA PO ×2 (07:01)
--- NOTE | 2019-10-29 07:10 | NUR ---
ED Nurse Note: Shift report given to MONIQUE Ortiz resume care, pt is sleeping and to be discharged when awakened per md, pt has patent saline lock and on cardiac monitoring, nad noted, d/c instructions in chart.
[2019-10-29 07:25] VITALS: BP 129/90
--- NOTE | 2019-10-29 07:25 | NUR ---
ER DISCHARGE NOTE: Patient is cleared to be discharged per ERMD, pt is aox4, on room air, with stable vital signs. pt was given dc and prescription instructions, pt was able to verbalize understanding, pt id band and iv site removed without complications. pt is able to ambulate with steady gait. pt took all belongings.
== END 2019-10-29 07:32 | disposition home or self-care (01) ==
LOC: EMR 05:38
DX: K52.9 Noninfective gastroenteritis and colitis, unspecified (principal); Z85.810 Personal history of malignant neoplasm of tongue; Z88.0 Allergy status to penicillin
CPT/HCPCS: 36415; 80053; 80307; 81003; 83690; 85025; 96361; 96374; 96375; G0480; J1885; J2405; J7030; Z7502; 99284

== ENCOUNTER 2019-12-23 20:16 | Emergency (ER) | payer MEDICAID ==
[~2019-12-23] VITALS: Ht 175.3 cm; Wt 68.0 kg
[~2019-12-23 20:16] MED LIST changes: +FAMOTIDINE20 MG ORAL; +IMODIUM2 MG ORAL; +ONDANSETRON ODT4 MG BC; +ULTIMATE FLORA PO
[2019-12-23 20:22] VITALS: BP 97/45
[2019-12-23 20:40] VITALS: BP 85/43
[2019-12-23 20:41] LABS: BASOPHILS % (AUTO) 1.6 % (0.0-2.0); HEMOGLOBIN 15.9 G/DL (14.2-18.0); LYMPHOCYTES % (AUTO) 35.5 % (20.0-45.0); MEAN CORPUSCULAR VOLUME 95 FL (80-99); NEUTROPHILS % (AUTO) 49.8 % (45.0-75.0); PLATELET COUNT 242 K/UL (150-450); RED BLOOD COUNT 4.84 M/UL (4.70-6.10); RED CELL DISTRIBUTION WIDTH 11.5 % (11.6-14.8); WHITE BLOOD COUNT 12.3 K/UL (4.8-10.8)
[2019-12-23 20:45] LABS: ANION GAP 25 mmol/L (5-15); BLOOD UREA NITROGEN 19 mg/dL (7-18); CALCIUM 9.4 MG/DL (8.5-10.1); CARBON DIOXIDE 14 MMOL/L (21-32); CHLORIDE 101 MMOL/L (98-107); CREATININE 1.9 MG/DL (0.55-1.30); POTASSIUM 3.3 MMOL/L (3.5-5.1); SODIUM 140 MMOL/L (136-145)
[2019-12-23 20:49] LABS: ALANINE AMINOTRANSFERASE 18 U/L (12-78); ALBUMIN 4.6 G/DL (3.4-5.0); ALBUMIN/GLOBULIN RATIO 1.5 (1.0-2.7); ALKALINE PHOSPHATASE 71 U/L (46-116); ASPARTATE AMINO TRANSFERASE 14 U/L (15-37); BILIRUBIN,TOTAL 0.7 MG/DL (0.2-1.0)
--- NOTE | 2019-12-23 20:54 | Emergency Room Report ---
History of Present Illness General Chief Complaint: Altered Mental Status Present Illness HPI 34-year-old disclaimer: Please note that this report is being documented using DRAGON technology. This can lead to erroneous entry secondary to incorrect interpretation by the dictating instrument. HPI: This is a 34-year-old male who presented from the street reportedly after using methamphetamine. He was found acting aggressively. He was given Versed by EMS and was sleeping on arrival. Patient is unable to provide any history to me but has been to our hospital before and has no reported past medical history PMH: Per chart review no past medical history PSH: Reviewed Social Hx: Patient did admit to methamphetamine use today (Madhu Guo M.D.) Allergies: Coded Allergies: AMOXICILLIN (Verified Allergy, Unknown, 05/16/18) COVID-19 Screening Contact w/high risk pt: No Recent Travel to affected area: No Experienced COVID-19 symptoms?: No COVID-19 Testing performed BINDERY LEADPERSON: No (Madhu Guo M.D.) Patient History Reviewed Nursing Documentation: PMH: Agreed; PSxH: Agreed (Madhu Guo M.D.) Nursing Documentation-PMH Hx Cardiac Problems: No History Of Psychiatric Problem: Yes Hx Neurological Problems: Yes (Madhu Guo M.D.) Review of Systems All Other Systems: limited - Patient sedated on arrival (Madhu Guo M.D.) Physical Exam Vital Signs Date Time Temp Pulse Resp B/P (MAP) Pulse Ox O2 Delivery O2 Flow Rate FiO2 12/23/19 20:12 98.4 139 18 106/35 (58) 99 Room Air Sp02 EP Interpretation: reviewed, normal General Appearance: Stupor - Patient sedated mildly diaphoretic Head: normocephalic, atraumatic Eyes: bilateral eye PERRL, bilateral eye EOMI ENT: no angioedema, moist mucus membranes Neck: supple, supple/symm/no masses Respiratory: lungs clear, normal breath sounds, no rhonchi, no respiratory distress, no retraction, no wheezing Cardiovascular #1: normal peripheral pulses, no murmur, tachycardia Gastrointestinal: soft, non-distended, no guarding Neurologic: no focal defects, other - Patient sedated but withdraws extremities to pain Skin: normal color, warm/dry (Madhu Guo M.D.) Medical Decision Making Diagnostic Impression: Primary Impression: Methamphetamine abuse Additional Impression: Drug-induced psychotic disorder Qualified Codes: F19.959 - Other psychoactive substance use, unspecified with psychoactive substance-induced psychotic disorder, unspecified ER Course MDM: Differential included methamphetamine abuse, psychosis, dehydration, alcohol intoxication to name a few Clinical course-patient was sedated on arrival. IV fluids and basic laboratory studies were sent. Patient was not anemic. Urine drug screen positive for amphetamines and THC. His heart rate improved with IV fluids. Labs - On reevaluation: Plan- Laboratory Tests Test 12/23/19 20:19 12/23/19 20:20 White Blood Count 12.3 K/UL (4.8-10.8) H Red Blood Count 4.84 M/UL (4.70-6.10) Hemoglobin 15.9 G/DL (14.2-18.0) Hematocrit 46.0 % (42.0-52.0) Mean Corpuscular Volume 95 FL (80-99) Mean Corpuscular Hemoglobin 32.8 PG (27.0-31.0) H Mean Corpuscular Hemoglobin Concent 34.5 G/DL (32.0-36.0) Red Cell Distribution Width 11.5 % (11.6-14.8) L Platelet Count 242 K/UL (150-450) Mean Platelet Volume 10.3 FL (6.5-10.1) H Neutrophils (%) (Auto) 49.8 % (45.0-75.0) Lymphocytes (%) (Auto) 35.5 % (20.0-45.0) Monocytes (%) (Auto) 11.0 % (1.0-10.0) H Eosinophils (%) (Auto) 2.0 % (0.0-3.0) Basophils (%) (Auto) 1.6 % (0.0-2.0) Sodium Level 140 MMOL/L (136-145) Potassium Level 3.3 MMOL/L (3.5-5.1) L Chloride Level 101 MMOL/L (98-107) Carbon Dioxide Level 14 MMOL/L (21-32) L Anion Gap 25 mmol/L (5-15) H Blood Urea Nitrogen 19 mg/dL (7-18) H Creatinine 1.9 MG/DL (0.55-1.30) H Estimated Glomerular Filtration Rate 41.3 mL/min (>60) Glucose Level 182 MG/DL (74-106) H Calcium Level 9.4 MG/DL (8.5-10.1) Total Bilirubin 0.7 MG/DL (0.2-1.0) Aspartate Amino Transferase (AST) 14 U/L (15-37) L Alanine Aminotransferase (ALT) 18 U/L (12-78) Alkaline Phosphatase 71 U/L (46-116) Total Protein 7.7 G/DL (6.4-8.2) Albumin 4.6 G/DL (3.4-5.0) Globulin 3.1 g/dL Albumin/Globulin Ratio 1.5 (1.0-2.7) Serum Alcohol < 3 mg/dL Urine Opiates Screen Negative (NEGATIVE) Urine Barbiturates Screen Negative (NEGATIVE) Phencyclidine (PCP) Screen Negative (NEGATIVE) Urine Amphetamines Screen Positive (NEGATIVE) H Urine Benzodiazepines Screen Negative (NEGATIVE) Urine Cocaine Screen Negative (NEGATIVE) Urine Marijuana (THC) Screen Positive (NEGATIVE) H (Madhu Guo M.D.) ER Course Patient signed out to me. He presents with drug-induced psychosis secondary to methamphetamine. He has been sedated and sleeping. Will observe until clinical sobriety. Patient slept through the night. Now he is awake and walking around without any difficulty. Said he wants to go. No suicidal thoughts homicidal thought. No criteria for 5150. This patient is a chronic risk of self injury due to poor impulse control, limited coping skills, and judgment intermittently impaired by intoxication. I believe that the available clinical evidence to suggest that these characteristics derived primarily from personality disorder and are likely very stable over time. Hospitalization would likely attenuate risk of self-harm only during detention period, without lasting risk reduction. Serious self-harm , while possible, would likely be inadvertent, and because of impulsivity, and foreseeable. For these reasons, I do not believe hospitalization would provide meaningful reduction in risk of self-harm. (Jamison Rock MD) Last Vital Signs Date Time Temp Pulse Resp B/P (MAP) Pulse Ox O2 Delivery O2 Flow Rate FiO2 12/23/19 20:12 98.4 139 18 106/35 (58) 99 Room Air (Madhu Guo M.D.) Status: improved (Jamison Rock MD) Disposition: HOME, SELF-CARE Condition: Stable Additional Instructions: Abstain from drugs and alcohol. Follow-up with your doctor in 7 days. Go to rehab. Return if worse. Madhu Guo M.D. Dec 23, 2019 20:54 Jamison Rock MD Dec 24, 2019 00:46
[2019-12-23 21:16] VITALS: BP 100/44
[2019-12-23 23:18] VITALS: BP 88/49
[2019-12-24 01:25] VITALS: BP 89/49
[2019-12-24 03:39] VITALS: BP 93/56
[2019-12-24 05:09] VITALS: BP 101/68
[2019-12-24 05:33] VITALS: BP 101/73
== END 2019-12-24 05:33 | disposition home or self-care (01) ==
LOC: EDBD 20:16 → EMR 20:48
DX: F15.10 Other stimulant abuse, uncomplicated (principal); F19.959 Other psychoactive substance use, unspecified with psychoactive substance-induced psychotic disorder, unspecified; Z88.0 Allergy status to penicillin
CPT/HCPCS: 36415; 80053; 80307; 85025; 96360; G0480; J7030; Z7502; 99284

== ENCOUNTER 2020-07-01 02:41 | Emergency (ER) | payer MEDICAID ==
[~2020-07-01] VITALS: Ht 175.3 cm; Wt 77.1 kg
[2020-07-01] MEDS ORDERED: TRUVADA 200 MG1 EAC1 ORAL (02:57)
--- NOTE | 2020-07-01 03:00 | NUR ---
ED Nurse Note/discharge note: pt came in for a medication refill. vs wnl. pt a&ox3. breathing without issues on ra. pt received rx and departed.
[2020-07-01 03:04] VITALS: BP 123/83
--- NOTE | 2020-07-01 04:22 | Emergency Room Report ---
History of Present Illness General Chief Complaint: Medication Refill Source: Patient Present Illness HPI 35-year-old male here requesting prescription for Truvada. Patient had been given a prescription for Truvada previously to take after he was possibly exposed to HIV. Patient said that few days ago he had unprotected sex with "someone who might have AIDS" and was requesting a refill for only Truvada. Sa ys that he has Isentress. Denies any symptoms at this time. Allergies: Coded Allergies: AMOXICILLIN (Verified Allergy, Unknown, 05/16/18) COVID-19 Screening Contact w/high risk pt: No Recent Travel to affected area: No Experienced COVID-19 symptoms?: No COVID-19 Testing performed MILITARY PERSONNEL SPECIALIST: No Nursing Documentation-[facility] Past Medical History: No History, Except For Hx Cardiac Problems: No Hx Neurological Problems: Yes Review of Systems All Other Systems: negative except mentioned in HPI Physical Exam Vital Signs Date Time Temp Pulse Resp B/P (MAP) Pulse Ox O2 Delivery O2 Flow Rate FiO2 07/01/20 02:46 98.2 97 17 123/83 (96) 98 Room Air Sp02 EP Interpretation: reviewed, normal General Appearance: no apparent distress, alert, non-toxic Head: normocephalic, atraumatic Eyes: bilateral eye normal inspection, bilateral eye PERRL ENT: hearing grossly normal, normal pharynx, no angioedema, normal voice Neck: full range of motion, supple/symm/no masses Respiratory: chest non-tender, lungs clear, normal breath sounds, speaking full sentences Cardiovascular #1: regular rate, rhythm, no edema Cardiovascular #2: 2+ carotid (R), 2+ carotid (L), 2+ radial (R), 2+ radial (L), 2+ dorsalis pedis (R), 2+ dorsalis pedis (L) Gastrointestinal: normal bowel sounds, non tender, soft, non-distended, no guar ding, no rebound Rectal: deferred Genitourinary: normal inspection, no CVA tenderness Musculoskeletal: back normal, normal range of motion, gait/station normal, non- tender Neurologic: alert, motor strength/tone normal, oriented x3, sensory intact, responsive, speech normal Psychiatric: judgement/insight normal, memory normal, no suicidal/homicidal ideation, other - Appears anxious but is redirectable and answers questions appropriately Lymphatic: no adenopathy Medical Decision Making Diagnostic Impression: Primary Impression: Encounter for medication refill ER Course 35-year-old male here requesting prescription for Truvada. Patient says that he has Isentress. He said that he had unprotected sex a few days ago and is worried about possible HIV exposure. Patient was requesting HIV test however was told that HIV test would be negative given the only very recent exposure and not indicated at this time. Patient was verbally abusive towards staff and refused to stop brushing his teeth during the examination. Patient was given prescription for Truvada and was discharged. Last Vital Signs Date Time Temp Pulse Resp B/P (MAP) Pulse Ox O2 Delivery O2 Flow Rate FiO2 07/01/20 03:04 98.2 17 123/83 98 Room Air 07/01/20 02:46 97 Disposition: HOME, SELF-CARE Condition: Stable Scripts Emtricitabine/Tenofovir 200-300MG* (TRUVADA 200-300MG*) 1 Each Tablet 1 TAB ORAL DAILY for 28 Days, TAB Prov: Tristen Huerta M.D. 07/01/20 Referrals: NON PHYSICIAN (PCP) Patient Instructions: Medicine Refill at the Emergency Department Tristen Huerta M.D. Jul 01, 2020 04:22
== END 2020-07-01 04:00 | disposition home or self-care (01) ==
LOC: EMR 03:05
DX: Z76.0 Encounter for issue of repeat prescription (principal); Z20.6 Contact with and (suspected) exposure to human immunodeficiency virus [HIV]; Z88.1 Allergy status to other antibiotic agents
CPT/HCPCS: 99282